=== PATIENT | female | born 1980 | race Caucasian/White ===

== ENCOUNTER → 2018-08-05 16:35 | Outpatient (CLI) | payer MEDICAID, SELFPAY ==
[2018-08-05 17:47] LABS: Basophils # 0.1 K/mm3 (0-0.2); Basophils % 0.9 % (0.1-2.0); Eosinophils # 0.1 K/mm3 (0.0-0.4); Eosinophils % 1.8 % (0.1-12.0); Hematocrit 36.2 % (37.0-47.0); Hemoglobin 11.8 g/dL (12.2-16.2); Lymphocytes # 1.9 K/mm3 (0.7-4.5); Lymphocytes % 33.6 % (10-50); Mean Corpuscular HGB Conc 32.4 g/dL (31.8-35.4); Mean Corpuscular Hemoglobin 28.3 pg (27.0-31.2); Mean Corpuscular Volume 87.4 fl (81-99); Mean Platelet Volume 8.1 fl (7.4-10.4); Monocytes # 0.4 K/mm3 (0.1-1.0); Monocytes % 7.6 % (1.7-9.3); Neutrophils # 3.1 K/mm3 (1.8-7.8); Neutrophils % 56.1 % (37.0-80.0); Platelet Count 304 K/mm3 (142-424); Red Blood Count 4.15 M/mm3 (4.20-5.40); White Blood Count 5.6 K/mm3 (4.8-10.8)
[2018-08-05 18:20] LABS: Alanine Aminotransferase 23 U/L (12-78); Albumin Level 3.8 gm/dL (3.4-5.0); Albumin/Globulin Ratio 1.3 (1.1-1.8); Alkaline Phosphatase 63 U/L (46-116); Anion Gap 15.2 mEq/L (5-15); Aspartate Amino Transferase 18 U/L (15-37); Bilirubin,Total 0.2 mg/dL (0.2-1.0); Blood Urea Nitrogen 23 mg/dL (7-18); Calcium 8.6 mg/dL (8.5-10.1); Carbon Dioxide 26 mmol/L (21.0-32.0); Chloride 103 mmol/L (98-107); Chol/HDL Ratio 2.6 (1-3.5); Cholesterol 179 mg/dL (140-200); Creatinine,Serum 1.32 mg/dL (0.55-1.02); Estimated Glomerular Filt Rate 46 ml/min (>60); GFR (African American) 55 ML/MIN (>60); Glucose 93 mg/dL (74-106); HDL Cholesterol 68 mg/dL (29-89); LDL Cholesterol 97 mg/dL (0-130); Potassium 4.2 mmoL/L (3.5-5.1); Sodium 140 mmol/L (136-145); T4 (Thyroxine) 6.3 ug/dl (4.7-13.3); Thyroid Stimulating Hormone 1.36 uIU/ml (0.358-3.740); Total Protein,Serum 6.8 gm/dL (6.4-8.2); Triglycerides 71 mg/dL (30-200); VLDL Cholesterol 14 mg/dL (0-40)
[2018-08-07 18:05] LABS: Folate 17.8 ng/mL (>3.0); Vitamin B12 458 pg/mL (232-1245); Vitamin D 25 Hydroxy 43.2 ng/mL (30.0-100.0)
== END ==
PROVIDERS: Visit Provider Nurse Practitioner Family
DX: R53.83 Other fatigue (principal)
CPT/HCPCS: 80053; 80061; 82607; 82652; 82746; 84436; 84443; 85025

== ENCOUNTER → 2018-08-26 12:50 | Outpatient (CLI) | payer MEDICAID, SELFPAY ==
--- NOTE | 2018-08-26 12:54 | US_ITS ---
US Kidney CLINICAL INDICATION: Abnormal renal functions, prior left nephrectomy ORDERING PHYSICIAN: GABY Morales PATIENT AGE: 38 years Comparison: None FINDINGS: Right kidney measures 12 x 5 x 8 cm. No cortical thinning, hydronephrosis, or renal mass or perinephric fluid collection is evident. There was an area imaged along the lower abdominal wall conforming to a palpable abnormality measuring approximately 14 mm and may be due to a small lipoma IMPRESSION: Unremarkable appearance of the right kidney
--- NOTE | 2018-08-26 12:54 | XR_ITS ---
XR chest 2V HISTORY: ITS.REASON: cough ORDERING PHYSICIAN: GABY Morales PATIENT AGE: 38 years COMPARISON: None FINDINGS: The cardiomediastinal silhouette and pulmonary vascularity are within normal limits. There is some increased density in the right lower lung zone laterally probably due to breast shadow The lungs are clear without infiltrates, suspicious nodules, or pleural effusions. There is exaggeration of lower thoracic kyphosis with mild wedging of T12 and T11 and T10 which appears old IMPRESSION: No acute finding
[2018-08-26 14:36] LABS: Reticulocyte % (Auto) 1.1 % (0.9-3.2)
[2018-08-26 15:20] LABS: Ferritin 8 ng/mL (8-388)
[2018-08-28 08:49] LABS: Iron 29 ug/dL (27-159); UIBC 254 ug/dL (131-425)
[2018-08-28 20:35] LABS: Iron Saturation 10 % (15-55)
== END ==
PROVIDERS: Nurse Practitioner Family; PCP Physician Assistant; Visit Provider Physician Assistant
DX: R79.89 Other specified abnormal findings of blood chemistry (principal); R79.9 Abnormal finding of blood chemistry, unspecified; R05 Cough; D64.9 Anemia, unspecified
CPT/HCPCS: 36415; 71046; 76770; 82728; 83540; 83550; 85044

== ENCOUNTER → 2018-08-31 16:42 | Outpatient (CLI) | payer MEDICAID, SELFPAY ==
[2018-08-31 16:45] LABS: Microscopic, Urine URINE MICROSCOPIC (MICROSCOPIC)
[2018-08-31 17:33] LABS: Appearance,Urine CLEAR (Clear); Bilirubin,Urine Negative (Negative); Blood, Urine Negative (Negative); Color,Urine YELLOW (Yellow); Glucose,Urine (UA) Negative (Negative); Ketones,Urine Negative (Negative); Leukocyte Esterase,Urine Negative (Negative); Nitrate,Urine Negative (Negative); Protein,Urine Negative (Negative); Urobilinogen,Urine 0.2 EU/dl (0.2)
[2018-08-31 17:47] LABS: Squamous Epithelial Cell,Urine Occasional #/hpf (0-5)
[2018-08-31 17:48] LABS: RBC,Urine Occasional #/hpf (0-3); WBC,Urine Occasional #/hpf (0-3)
[2018-09-02 11:30] LABS: Creatinine, Urine 75.8 mg/dL (Not Estab.); Microalbumin, Urine <3.0 ug/mL (Not Estab.)
== END ==
PROVIDERS: Visit Provider Nurse Practitioner Family
DX: R94.4 Abnormal results of kidney function studies (principal)
CPT/HCPCS: 81001; 82043; 82570

== ENCOUNTER → 2018-09-27 16:26 | Outpatient (CLI) | payer MEDICAID, SELFPAY ==
--- NOTE | 2018-09-27 16:33 | MM_ITS ---
MM Dig screening mamm BI w/CAD CAD Screening COMPARISON: Outside digital mammograms with CAD 09/19/2016 INDICATION: There is no personal or family history of breast cancer TECHNIQUE: Standard CC and MLO images were obtained. R2 CAD reviewed. FINDINGS: Prominent diffuse heterogenic fibroglandular densities are seen throughout both breasts somewhat lessening the sensitivity of mammography. Slightly increased fibroglandular densities are seen in the upper outer quadrant right breast and this was seen on the previous exam as well. There is no suspicious lesion in either breast and there are no suspicious microcalcifications. There is a benign-appearing microcalcification right breast. IMPRESSION: Diffusely dense parenchymal pattern with no suspicious lesion seen BI-RADS Category: 2 Benign Finding(s) RECOMMENDED FOLLOW-UP: 1YR - 1 YEAR FOLLOW-UP (A letter has been sent to the patient regarding results of the study.)
== END ==
PROVIDERS: PCP Nurse Practitioner Family; Visit Provider Obstetrics & Gynecology
DX: Z12.31 Encounter for screening mammogram for malignant neoplasm of breast (principal)
CPT/HCPCS: 77067

== ENCOUNTER → 2018-12-14 14:21 | Outpatient (CLI) | payer MEDICAID, SELFPAY ==
[2018-12-14 14:51] LABS: Basophils % 0.7 % (0.1-2.0); Eosinophils # 0.1 K/mm3 (0.0-0.4); Eosinophils % 1.5 % (0.1-12.0); Hematocrit 38.1 % (37.0-47.0); Hemoglobin 11.9 g/dL (12.2-16.2); Lymphocytes % 39.8 % (10-50); Mean Corpuscular HGB Conc 31.3 g/dL (31.8-35.4); Mean Corpuscular Volume 89.4 fl (81-99); Mean Platelet Volume 7.3 fl (7.4-10.4); Monocytes # 0.4 K/mm3 (0.1-1.0); Monocytes % 7.9 % (1.7-9.3); Neutrophils # 2.5 K/mm3 (1.8-7.8); Neutrophils % 50.1 % (37.0-80.0); Platelet Count 269 K/mm3 (142-424); Red Blood Count 4.26 M/mm3 (4.20-5.40); White Blood Count 4.9 K/mm3 (4.8-10.8)
[2018-12-14 15:04] LABS: HCG Qualitative, Serum Negative (Negative)
[2018-12-14 15:08] LABS: Anion Gap 14.2 mEq/L (5-15); Blood Urea Nitrogen 11 mg/dL (7-18); Carbon Dioxide 26 mmol/L (21.0-32.0); Chloride 104 mmol/L (98-107); Creatinine,Serum 1.04 mg/dL (0.55-1.02); Estimated Glomerular Filt Rate 60 ml/min (>60); GFR (African American) 73 ML/MIN (>60); Glucose 111 mg/dL (74-106); Potassium 5.2 mmoL/L (3.5-5.1); Sodium 139 mmol/L (136-145)
== END ==
PROVIDERS: Visit Provider Surgery
DX: Z01.818 Encounter for other preprocedural examination (principal); D17.9 Benign lipomatous neoplasm, unspecified
CPT/HCPCS: 36415; 80048; 84703; 85025

== ENCOUNTER → 2020-02-16 17:32 | Outpatient (CLI) | payer BC, SELFPAY ==
[2020-02-16 17:53] LABS: Basophils % 1.1 % (0.1-2.0); Eosinophils # 0.1 K/mm3 (0.0-0.4); Eosinophils % 1.6 % (0.1-12.0); Hematocrit 43.8 % (37.0-47.0); Hemoglobin 13.9 g/dL (12.2-16.2); Lymphocytes # 0.8 K/mm3 (0.7-4.5); Lymphocytes % 20.8 % (10-50); Mean Corpuscular HGB Conc 31.8 g/dL (31.8-35.4); Mean Corpuscular Hemoglobin 29.4 pg (27.0-31.2); Mean Corpuscular Volume 92.5 fl (81-99); Mean Platelet Volume 9.2 fl (7.4-10.4); Monocytes # 0.5 K/mm3 (0.1-1.0); Monocytes % 12.4 % (1.7-9.3); Neutrophils # 2.4 K/mm3 (1.8-7.8); Neutrophils % 64.1 % (37.0-80.0); Platelet Count 258 K/mm3 (142-424); Red Blood Count 4.73 M/mm3 (4.20-5.40); Red Cell Distribution Width 12.9 % (11.5-17.5); White Blood Count 3.8 K/mm3 (4.8-10.8)
[2020-02-16 21:35] LABS: Alanine Aminotransferase 11 U/L (12-78); Albumin Level 4.6 g/dl (3.5-5.0); Albumin/Globulin Ratio 1.6 (1.1-1.8); Alkaline Phosphatase 78 U/L (38-126); Anion Gap 16.3 mEq/L (5-15); Aspartate Amino Transferase 16 U/L (14-36); Bilirubin,Total 0.4 mg/dl (0.2-1.3); Blood Urea Nitrogen 13 mg/dl (7-17); Calcium 9.2 mg/dl (8.4-10.2); Carbon Dioxide 23 mmol/L (22.0-30.0); Chloride 103 mmol/L (98-107); Chol/HDL Ratio 2.7 (1-3.5); Cholesterol 202 mg/dl (140-200); Estimated Glomerular Filt Rate 62 ml/min (>60); GFR (African American) 75 ML/MIN (>60); Globulin 2.8 g/dL (1.3-3.2); Glucose 94 mg/dl (74-100); HDL Cholesterol 76 mg/dl (40-60); Potassium 4.3 mmoL/L (3.5-5.1); Sodium 138 mmol/L (136-145); Total Protein,Serum 7.4 g/dl (6.3-8.2); Triglycerides 74 mg/dl (30-150); VLDL Cholesterol 15 mg/dL (0-40)
[2020-02-16 21:47] LABS: Direct LDL Cholesterol 104.77 mg/dL (100-129)
[2020-02-16 21:56] LABS: 25-OH Vitamin D, Total 54.5 ng/mL (30-100)
[2020-02-16 22:08] LABS: Thyroid Stimulating Hormone 1.16 uIU/mL (0.465-4.68)
[2020-02-16 22:26] LABS: Vitamin B12 668 pg/mL (239-931)
[2020-02-17 14:35] LABS: Monoscreen (Rapid) Negative (Negative)
[2020-02-20 23:15] LABS: EBV Ab VCA, IgG 55.9 U/mL (0.0-17.9); EBV Ab VCA, IgM <36.0 U/mL (0.0-35.9); EBV Nuclear Antigen Ab, IgG 62.1 U/mL (0.0-17.9)
== END ==
PROVIDERS: Visit Provider Physician Assistant
DX: R51.9 Headache, unspecified (principal); G89.29 Other chronic pain; R53.83 Other fatigue; R68.89 Other general symptoms and signs
CPT/HCPCS: 80053; 80061; 82306; 82607; 84436; 84443; 85025; 86318; 86664; 86665

== ENCOUNTER → 2020-03-28 14:58 | Outpatient (CLI) | payer BC, SELFPAY | PROVIDERS: PCP Physician Assistant; Visit Provider Physician Assistant | DX: R40.0 Somnolence (principal); G47.30 Sleep apnea, unspecified | CPT/HCPCS: G0399 ==

== ENCOUNTER 2020-04-26 09:27 | Emergency (ER) | payer BC, SELFPAY ==
[2020-04-26 09:40] VITALS: BP 106/69; PULSE 77; RESP 20; TEMP 36.8; O2SAT 98; BMI 25.8
[2020-04-26 09:53] LABS: UTC Strep Screen (Rapid) Positive (Negative)
--- NOTE | 2020-04-26 09:55 | HMH.EDUTC ---
[facility] – [place] Disposition Clinical Impression: Strep throat Disposition: Home, Self-Care Condition on Discharge: Good Instructions: Strep Throat (Alternative Therapy), Strep Throat, DI for Strep Throat, Cefdinir Additional Instructions: *If you did not take Penicillin shot or was unable to, start taking antibiotic immediately and make sure that you take it for the FULL length of time although you should start to feel better in 24-48 hours *change toothbrush and toothpaste 24-48 hours after starting to take antibiotics so you do not reinfect yourself Monitor Temp. Tylenol and/or Ibuprofen as needed. ER if fever is no less than 101 despite alternating Tylenol and Ibuprofen * Encourage fluids, water, Gatorade, powerade, pedialyte if /toddler/or child *Cold fluids, popsicles and ice cream may feel good on his throat *Monitor Temp, Over the counter Motrin or Tylenol as directed/as needed Tylenol every 4 hours and Motrin every 6 hours (as long as your family doctor has told you that you can take it) for fever or pain. and straight to ER if unable to lower temp less than 101.0 after medication given *Warm salt water gargles may help to soothe the throat *Throat Lozenges *Warm fluids like tea with honey may help to soothe the throat *Sleep elevated *Humidifier/Vaporizer Follow up IMMEDIATELY for new or worsening symptoms or no Noticeable improvement over the next 48-72 hours. 911 for difficulty breathing or swallowing You were tested for today for COVID19 your test result should be back in the next 24-48 hours, you may call to the [facility] to see if your test results are back in the next 48 hours [phone] [facility] hours are 9am-9pm You was given a handout with instructions for Self Quarantine and Self isolation for while you wait on test results and what to do if they are positive If you are positive the Health Dept will be contacting you also Prescriptions: Cefdinir [Omnicef 300mg Capsule] 300 mg PO BID #20 cap Transmission Status: Received by [id number] Referrals: Joan Tang PA [Primary Care Provider] - As needed Forms: Work/School Release Time of Disposition: 10:06 Medical Decision Making - Chance Inquiry Pt receiving controlled substance: No Chance was queried for this patient: No Vital Signs: 04/26/20 09:40 Temperature 98.3 F Temperature Source Oral Pulse Rate [Right Brachial] 77 Respiratory Rate 20 Blood Pressure [Right Arm] 106/69 L Blood Pressure Mean [Right Arm] 81 Blood Pressure Source [Right Arm] Automatic Cuff Blood Pressure Position [Right Arm] Sitting 02 Sat by Pulse Oximetry 98 Oxygen Delivery Method Room Air - Lab Data Lab results reviewed: Yes: I reviewed the patient's lab results. Lab Results 04/26/20 09:31: Strep Scn Rapid Clinic Positive A Orders (Tests/Meds): ORDERS Category Date Time Status Covid-19 Nasal PCR Sendout P&C Routine Lab 04/26/20 09:54 Ordered Medical Decision Narrative: Patient states that she is allergic to PCN but has taken Cefdnir before without reactions or complication took it as recently as Jan. Patient advised that she is currently taking CIPRO for UTI and only has 2 days left, spoke with pharmacy and agreed will add Cefdnir to cover strep throat [facility] – [place] HPI - General Stated complaint: sore throat, loss of smell and taste Time Seen by Provider: 04/26/20 09:55 Mode of Arrival: Ambulatory Source of Information: Patient Limitations: No Limitations Description of Symptoms (Recalled from Triage Doc. by RN): PATIENT C/O PETECHIAE ON ROOF OF MOUTH, SORE THROAT, AND LOSS OF SMELL SINCE THURSDAY. REQUESTING COVID TEST D/T EXPOSURE HEENT Symptoms (Recalled from RN notes): Yes Resp Symptoms (Recalled from RN notes): No Skin Symptoms (Recalled from RN notes): No MS Symptoms (Recalled from RN notes): No Functional Status (Recalled from RN notes): WNL - History of Present Illness Provider Complaint: Patient states that she has been having sore throat,
[2020-04-26 10:15] VITALS: BP 106/69; PULSE 77; RESP 20; TEMP 36.8; O2SAT 98
[2020-04-27 11:11] LABS: Covid-19 Nasal PCR Sendout P&C NEGATIVE
== END 2020-04-26 10:18 | disposition home or self-care (01) ==
PROVIDERS: Emergency Provider Nurse Practitioner; PCP Physician Assistant
DX: J02.0 Streptococcal pharyngitis (principal); F41.9 Anxiety disorder, unspecified; Z79.899 Other long term (current) drug therapy
CPT/HCPCS: 87880; 99202; G0463; U0004

== ENCOUNTER → 2020-10-10 14:00 | Outpatient (CLI) | payer MEDICAID, SELFPAY ==
--- NOTE | 2020-10-10 14:08 | XR_ITS ---
PROCEDURE: XR SKULL MIN 4V CLINICAL INDICATION: dent on right top of skull COMPARISON: No exams were available for comparison FINDINGS: Views of the skull show no definitive bony abnormality. No acute fracture noted. The paranasal sinuses are patent. If there is persistent concern clinically for skull abnormality, consider CT of the head for further assessment. IMPRESSION: No focal abnormality of the skull is noted. See comment above. Dictated by: Gopal Melton MD 10/10/2020 14:27 Gopal Melton MD in [place] 10/10/2020 14:27
== END ==
PROVIDERS: PCP Physician Assistant; Visit Provider Physician Assistant
DX: R51.9 Headache, unspecified (principal); G89.29 Other chronic pain; R53.83 Other fatigue; R68.89 Other general symptoms and signs
CPT/HCPCS: 70260

== ENCOUNTER → 2020-10-18 10:20 | Outpatient (CLI) | payer MEDICAID, SELFPAY ==
--- NOTE | 2020-10-18 10:27 | XR_ITS ---
PROCEDURE: XR CERVICAL SPINE 4V CLINICAL INDICATION: neck pain COMPARISON: No exams were available for comparison FINDINGS: Normal Alignment No fracture or dislocation. No lytic or blastic change. No significant degenerative change. The disc spaces are preserved. There is some straightening of the cervical lordosis nonspecific. Patient's head is tilted toward the left. IMPRESSION: Mild head tilt and slight straightening of the cervical lordosis which may be due to patient positioning or muscle spasm. Dictated by: Nikos Harper MD 10/18/2020 14:59 Nikos Harper MD in [place] 10/18/2020 14:59
== END ==
PROVIDERS: PCP Physician Assistant; Visit Provider Physician Assistant
DX: M54.2 Cervicalgia (principal)
CPT/HCPCS: 72050

== ENCOUNTER 2023-08-31 18:39 | Emergency (ER) | payer MEDICAID, SELFPAY ==
--- OUTSIDE RECORDS SUMMARY | 2023-08-31 18:43 | XMS_ITS | Continuity of Care Document ---
Author Name Unknown Organization [facility] Address [address] [place] [address] Phone Care Team Providers Care Pediatric Lpn Name Role Phone Unavailable Unavailable Unavailable Advance Directives Directive Yes / No Effective Date File Name No Information Encounters Encounter Description Practice Location Reason(s) For Visit Diagnoses Date Provider Providers Copied on Encounter [facility], [address], [place], [place], [id number], tel:[phone] [facility] No Information No Information Referring Provider: YAKOV Navarro, [address], [place], [address]. tel:[phone] Family History Family Member Type Diagnosis Age At Onset No Information Payers Payer name Insurance type Covered republican ID Authoriza tilittle(s) [facility] [id number] 1 Social History Type Description Quantity Date Captured Comments Sex Female Smoking Status No Information Chief Complaint And Reason For Visit No Information History Of Present Illness Encounter Date Complaint History Of Prese nt Illness No Information Instructions Date Instruction Additional Infor mation No Information Assessments Type Assessment Date No Information
[2023-08-31 19:05] VITALS: BP 106/67; PULSE 84; RESP 20; TEMP 37; O2SAT 97; BMI 28.5
--- NOTE | 2023-08-31 19:24 | EXP.UTC ---
Discharge Plan Disposition Patient Disposition: Home, Self-Care Condition: Good Prescriptions Prescriptions: No Action Mirena 20 mcg/24 hours (5 yrs) 52 mg intrauterine device INTRAUTERI cetirizine 10 mg tablet 10 mg PO QDAY Qty: 30 3RF fluticasone propionate 50 mcg/actuation spray,suspension 1 spray intranasal QDAY Qty: 11.1 4RF Rx Instructions: administer into each nostril cyclobenzaprine 10 mg tablet 10 mg PO HS Qty: 30 2RF methylprednisolone [Medrol (Manish)] 4 mg tablets,dose pack 4 mg PO PER PKG DIR 6 Days Qty: 21 0RF Referrals Follow up/Referrals: Joan Tang PA [Primary Care Provider] - See instructions Activity Restrictions/Add. Instructions Additional Instructions/Restrictions: *Monitor Temp, Over the counter Motrin or Tylenol as directed/as needed Tylenol every 4 hours and Motrin every 6 hours (as long as your family doctor has told you that you can take it) for fever or pain. and straight to ER if unable to lower temp less than 101.0 after medication given *Warm salt water gargles may help to soothe the throat *Throat Lozenges? *Warm fluids like tea with honey may help to soothe the throat? *Sleep elevated *Humidifier/Vaporizer Your throat swab was sent for culture. Those results are typically sent to your primary care. Be sure to follow up in 2-3 days with your family doctor/primary care physician if no improvement so they can review those result and treat if necessary. If you don?t have a primary care doctor, I recommend you get one but in the mean time, you will have to return to a walk in clinic Follow up IMMEDIATELY for new or worsening symptoms or no Noticeable improvement over the next 48-72 hours. 911 for difficulty breathing or swallowing Clinical Impressions Clinical Impression: Viral upper respiratory infection Instructions Patient Instructions: Sore Throat Discharge ED Provider: Lidia Barnhart [facility] HPI General Stated complaint: Sore throat,vomiting Mode of Arrival: Ambulatory Source of Information: Patient Limitations: No Limitations Time Seen by Provider: 08/31/23 19:24 Description of Symptoms (Recalled from Triage Doc. by RN): PATIENT C/O HEADACHE, FATIGUE, AND SORE THROAT SINCE YESTERDAY HEENT Symptoms (Recalled from RN notes): Yes Resp Symptoms (Recalled from RN notes): No Skin Symptoms (Recalled from RN notes): No MS Symptoms (Recalled from RN notes): No Functional Status (Recalled from RN notes): WNL History of Present Illness Provider Complaint: Patient states that she started yesterday with headache, sore throat and feeling achy and tired like she did before when she had strep throat so she came in to get checked Related Data Home Medications Medication Instructions Recorded Confirmed linaclotide 145 mcg capsule 145 mcg PO DAILY 08/31/23 08/31/23 (Linzess) lisdexamfetamine 30 mg capsule 30 mg PO DAILY 08/31/23 08/31/23 (Vyvanse) lumateperone 42 mg capsule 42 mg PO DAILY 08/31/23 08/31/23 (Caplyta) sertraline 25 mg tablet 25 mg PO DAILY 08/31/23 08/31/23 Allergies Allergy/AdvReac Type Severity Reaction Status Date / Time Penicillins Allergy Intermediate Verified 10/18/20 09:45 Worker's Comp Is this a Worker's Comp case?: No [facility] Disclaimer: The information contained in this section may have been updated after the patient was seen, as this information can be updated by other users. Medical History (Updated 08/31/23 @ 19:28 by Lidia Barnhart APRN) Anxiety Surgical History (Updated 08/31/23 @ 19:28 by Janice Perry RN) History of tonsillectomy History of cholecystectomy Social History Smoking Status: Never smoker alcohol intake: never substance use type: denies use current occupational status: other Travel in the last 8 weeks: None household members: children housing: house current occupation: mortician current occupational exposures/hazards: No caffeine: Yes ROS Obtained: Yes All systems reviewed & no additional complaints except as documented and Yes Systems reviewed as appropriate & no additional complaints except as documented Constitutional Constitutional: Reports system reviewed and no additional complaints, except as documented, Reports as per HPI, Reports body ache and Reports fatigue ENT Ears, Nose, Mouth, and Throat: Reports system reviewed and no additional complaints, except as documented, Reports as per HPI and Reports sore throat Cardiovascular Cardiovascular: Reports system reviewed and no additional complaints, except as documented and Reports as per HPI Respiratory Respiratory: Reports system reviewed and no additional complaints, except as documented and Reports as per HPI Gastrointestinal Gastrointestingal: Reports system reviewed and no additional complaints, except as documented and as per HPI Endocrine Endocrine: Reports fatigue Physical Exam General General appearance: alert and in no apparent distress ENT ENT exam: Present mucous membranes moist Expanded ENT Exam Nose exam: Absent sinus tenderness Throat exam: Present other (Mild pharyngeal erythema ) Respiratory Respiratory exam: Present normal lung sounds bilaterally; Absent respiratory distress or wheezes Cardiovascular Cardiovascular exam: Present regular rate, normal rhythm and normal heart sounds Abdominal Exam Abdominal exam: Present soft and normal bowel sounds; Absent distention or tenderness Neurological Exam Neurological exam: Present alert, oriented X3 and normal gait Medical Decision Making Chance Inquiry Pt receiving controlled substance: No Chance was queried for this patient: No Vital Signs: 08/31/23 19:05 Temperature 98.6 F Temperature Source Oral Pulse Rate [Left Brachial] 84 Respiratory Rate 20 Blood Pressure [Left Arm] 106/67 L Blood Pressure Mean [Left Arm] 80 Blood Pressure Source [Left Arm] Automatic Cuff Blood Pressure Position [Left Arm] Sitting 02 Sat by Pulse Oximetry 97 Oxygen Delivery Method Room Air Lab Data Lab results reviewed: Yes I reviewed the patient's lab results.
[2023-08-31 19:29] VITALS: BP 106/67; PULSE 84; RESP 20; TEMP 37; O2SAT 97
[2023-08-31 19:33] LABS: UTC Strep Screen (Rapid) Negative (Negative)
== END 2023-08-31 19:36 | disposition home or self-care (01) ==
PROVIDERS: Emergency Provider Nurse Practitioner; PCP Physician Assistant
DX: R51.9 Headache, unspecified (principal); R07.0 Pain in throat; J06.9 Acute upper respiratory infection, unspecified; B34.9 Viral infection, unspecified
CPT/HCPCS: 87880; 99204; 99212; G0463